=== PATIENT | female | born 1955 | race Caucasian/White ===

== ENCOUNTER 2021-04-12 11:11 | Emergency (ER) | payer MEDICAID, SELFPAY ==
[2021-04-12] VITALS (10 sets, daily range): BP systolic 155–170; BP diastolic 89–121; PULSE 102–117; RESP 16–22; TEMP 36.6; O2SAT 82–99; BMI 18.3
--- NOTE | 2021-04-12 11:22 | EKG12_ITS ---
Test Reason : SOB Blood Pressure : / mmHG Vent. Rate : 105 BPM Atrial Rate : 105 BPM P-R Int : 136 ms QRS Dur : 084 ms QT Int : 344 ms P-R-T Axes : 083 -40 079 degrees QTc Int : 454 ms Sinus tachycardia Right atrial enlargement Left axis deviation Septal MO, age undetermined, cannot be excluded Abnormal ECG Confirmed by EVELIO VELÁSQUEZ, DARI ([id number]), photo editor MARK ONTIVEROS ([id number]) on 04/15/2021 9:25:19 AM Referred By: ZAIN/MEGAN Confirmed By:DARI FRASER MD
--- NOTE | 2021-04-12 11:24 | EDS_ITS ---
HPI History of Present Illness Chief Complaint: Shortness of Breath Informant: patient and EMS Narrative Narrative: 65-year-old female who 3 weeks ago moved to [place] from the [facility] presents with shortness of breath. She states that she has a history of COPD as well as lung cancer. She is chronically on 2 L of nasal cannula. She states at home she trended up to 4. She has had a progressive dyspnea over the past couple days with change in cough and that she can't get her sputum up. No fevers. 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 She states that she was treated for lung cancer while she was staying with her daughter in [place]. She underwent chemotherapy as well as radiation. She did not require lobectomy. [facility] Medical History Asthma COPD (chronic obstructive pulmonary disease) Emphysema lung History of cataract Lung cancer Home Medications albuterol sulfate [Ventolin HFA] 2 puff INHALATION Q4H PRN PRN #1 inhaler 04/12/21 [Rx Last Taken Unknown] prednisone 60 mg PO DAILY #15 tablet 04/12/21 [Rx Last Taken Unknown] Allergy/AdvReac Type Severity Reaction Status Date / Time Penicillins Allergy Rash Verified 04/12/21 11:20 Surgical History History of carpal tunnel repair History of hysterectomy Social History (Updated 04/12/21 @ 11:[address] Emre Blanco DO) Smoking Status: Current some day smoker tobacco type: cigarettes substance use type: does not use ROS ROS ED Constitutional Constitutional ED: Denies chills or weight loss Eyes Eyes: Denies change in vision or diplopia ENT ENT ED: Denies ear pain, rhinorrhea or sore throat Cardiovascular Cardiovascular: Denies chest pain, orthopnea, palpitations or racing heartbeat Respiratory/Chest Respiratory/Chest: Reports cough, dyspnea, dyspnea on exertion and sputum; Denies orthopnea Gastrointestinal Gastrointestinal: Denies abdominal pain, diarrhea, nausea or vomiting Genitourinary Genitourinary ED: Denies dysuria, hematuria or urinary frequency Musculoskeletal Musculoskeletal: Denies arthralgias or myalgias Integumentary Denies abscess or rash Neurologic Neurologic: Denies headache(s) or weakness Psychiatric Psychiatric: Denies anxiety, depression, suicidal ideation or suicidal thoughts Endocrine Endocrinology: Denies polydipsia, polyphagia or polyuria Allergic/Immunologic Allergic/Immunologic ED: Denies mouth swelling, tongue swelling or urticaria EXAM Physical Exam Const Vital Signs: 04/12/21 11:13 04/12/21 11:14 04/12/21 11:29 Temperature 97.9 F Temperature Source Temporal Pulse Rate 102 H 105 H Respiratory Rate 16 22 H Respiratory Effort Short of Breath Labored Accessory Muscle Use Nasal Flaring Pursed Lip Retracting Respiratory Pattern Tachypnea Blood Pressure 160/121 H Blood Pressure Mean 134 Pulse Ox 98 99 97 Oxygen Delivery Method Nasal Cannula Nasal Cannula Nasal Cannula Oxygen Flow Rate (L/min) 3 6 3.5 04/12/21 11:30 04/12/21 11:53 04/12/21 11:55 Temperature Temperature Source Pulse Rate 105 H Respiratory Rate 16 Respiratory Effort Short of Breath Labored Accessory Muscle Use Respiratory Pattern Blood Pressure Blood Pressure Mean Pulse Ox 97 87 95 Oxygen Delivery Method Nasal Cannula Nasal Cannula Nasal Cannula Oxygen Flow Rate (L/min) 3.5 3 5 04/12/21 12:14 04/12/21 14:01 Temperature Temperature Source Pulse Rate 117 H Respiratory Rate 19 H Respiratory Effort Respiratory Pattern Blood Pressure 170/89 H Blood Pressure Mean 116 Pulse Ox 97 90 Oxygen Delivery Method Nasal Cannula Nasal Cannula Oxygen Flow Rate (L/min) 5 5 Positive well nourished and well developed General Appearance ED: well developed HEENT Reports normocephalic, head/scalp atraumatic, TM's clear and moist mucous membranes atraumatic Tympanic Membrane ED: Yes TM's clear Eyes PERRL and EOMs intact bilaterally Neck no lymphadenopathy, supple and no JVD Resp Resp Narrative: Tactile fremitus is present Auscultation: rhonchi and wheezes Cardio regular rhythm and no murmurs Rate: tachycardic GI normal to inspection, nondistended, normoactive bowel sounds and non-tender Auscultation: normoactive bowel sounds Palpation: soft Back/Spine no CVA tenderness, normal ROM and normal to inspection Extremity normal to inspection General Extremety ED: Negative for edema General Extremity: Negative for edema Neuro oriented x3 and CN's II-XII intact bilaterally Sensorium / Orientation: alert Motor Exam: strength 5/5 throughout Psych mental status grossly normal Mood & Affect: Negative for depressed or tearful Skin no rashes or lesions noted and no wounds MDM MDM MDM Narrative Medical decision making narrative: White count 3.3 with a hemoglobin of 10.8. Lactic acid 0.6. CO2 of 40 with a gap of three. My interpretation of the chest x-ray is chronic scarring of the right upper lobe. Radiology reads this as a possible pulmonary infiltrate however this is where the patient had her lung cancer and radiation. The patient's daughter arrives later in her ED course and tells me that her mother had a brain bleed that needed surgery in the past. She states she hit her head a couple weeks ago and she is worried that she has a brain bleed because she has been more tired lately. I explained to the patient that she is not on blood thinners that she had a very mild injury to the head that resulted in no loss of consciousness. I explained to her that each time she hits her head does not necessarily mean that she needs a CT. However the patient was going down for CTA of her chest so I did order a CT of the brain. CT of the brain was negative for intracranial hemorrhage. CTA of the chest demonstrates scarring of the right upper lobe. No obvious pulmonary embolism seen. Patient received DuoNeb albuterol aerosols and Solu-Medrol. Repeat examination shows her still requiring increased oxygen demand of about 5L nasal cannula. Her lung auscultation shows improved aeration continued expiratory wheeze. The patient really does not wish to stay in the hospital. She has a nebulizer at home. Patient would like to try outpatient therapy with prednisone and aerosols. I think that this is reasonable. She does have home oxygen. With the patient ambulating she becomes tachypneic and her oxygen sats to drop to 89% on 5 L. Patient clearly understands that I would prefer her to be treated in the hospital. Patient states she understands but she respectfully declines and would prefer to go home and states that she is having any difficulty she will come back. Lab Data Attestation: I reviewed the patient's lab results. Labs: Laboratory Results - last 24 hr 04/12/21 04/12/21 04/12/21 11:20 11:20 11:33 WBC 3.3 L RBC 4.18 L Hgb 10.8 L Hct 35.4 L MCV 84.7 MCH 25.8 L MCHC 30.5 L RDW Std Deviation 45.2 H RDW Coeff of Jose 14.6 Plt Count 186 MPV 9.4 Immature Gran % (Auto) 0.600 Neut % (Auto) 76.0 H Lymph % (Auto) 14.7 L Grand % (Auto) 8.4 Eos % (Auto) 0.0 Baso % (Auto) 0.3 Absolute Neuts (auto) 2.5 Absolute Lymphs (auto) 0.49 L Nucleated RBC % 0 Diff Path Review May foll Platelet Estimate ADEQUATE Hypochromasia 1+ Sodium 133 L Potassium 4.2 Chloride 90 L Carbon Dioxide 40.0 H Anion Gap 3 L BUN 6 L Creatinine 0.38 L Estim Creat Clear Calc 120.00 Est GFR (MDRD) Af Amer 218 Est GFR (MDRD) Non-Af 180 BUN/Creatinine Ratio 15.7 Glucose 124 H Lactic Acid 0.6 Calcium 8.7 Total Bilirubin 0.50 AST 28 ALT 29 Alkaline Phosphatase 98 Troponin I High Sens 28 Total Protein 7.6 Albumin 3.3 Globulin 4.3 H Albumin/Globulin Ratio 0.8 L COVID-19 (SARBJIT) 04/12/21 04/12/21 11:36 11:36 WBC RBC Hgb Hct MCV MCH MCHC RDW Std Deviation RDW Coeff of Jose Plt Count MPV Immature Gran % (Auto) Neut % (Auto) Lymph % (Auto) Grand % (Auto) Eos % (Auto) Baso % (Auto) Absolute Neuts (auto) Absolute Lymphs (auto) Nucleated RBC % Diff Path Review Platelet Estimate Hypochromasia Sodium Potassium Chloride Carbon Dioxide Anion Gap BUN Creatinine Estim Creat Clear Calc Est GFR (MDRD) Af Amer Est GFR (MDRD) Non-Af BUN/Creatinine Ratio Glucose Lactic Acid Calcium Total Bilirubin AST ALT Alkaline Phosphatase Troponin I High Sens Total Protein Albumin Globulin Albumin/Globulin Ratio COVID-19 (SARBJIT) Cancelled Not Detected Radiography Diagnostic Testing: Clinical Impression(s) from Imaging Studies Chest X-Ray 04/12/21 12:21 IMPRESSION: Right upper lobe pneumonia. Follow-up chest x-ray and/or chest CT is recommended to exclude mass. Electronically Signed: Yassine Hart MD at 12:32 EDT Tel , Service support , ADDENDUM: 04/12/21 1322 IMPRESSION: Right upper lobe pneumonia. Follow-up chest x-ray and/or chest CT is recommended to exclude mass. Electronically Signed: Yassine Hart MD at 12:32 EDT Tel , Service support , Brain CT 04/12/21 12:37 IMPRESSION: Chronic involutional changes of the brain. Electronically Signed: Yassine Hart MD at 13:43 EDT Tel , Service support , Chest CTA 04/12/21 12:37 IMPRESSION: 1. No CT evidence of pulmonary embolism. 2. Suspect right upper lobe bronchogenic carcinoma which may have been treated. Clinical correlation is recommended. Electronically Signed: Yassine Hart MD at 13:54 EDT Tel , Service support , EKG Initial EKG: Attestation: I personally reviewed and interpreted this EKG as follows: Comments: Sinus tachycardia with a ventricular rate of 105 bpm Discharge Plan Triage Chief Complaint: Shortness of Breath ED Provider: Emre Blanco Dx/Rx/DC Orders Clinical Impression: Acute exacerbation of chronic obstructive pulmonary disease Instructions: ED COPD Flare Prescriptions: New prednisone 20 MG tablet 60 mg PO DAILY Qty: 15 RF: 0 albuterol sulfate [Ventolin HFA] 1 INHALER inhaler 2 puff inhalation Q4H PRN PRN (Reason: Wheezing) Qty: 1 RF: 0 Primary Care Provider: Andrea Smith Referrals: Andrea Smith MD [Primary Care Provider] - As Needed Disposition Disposition: Home, Self Care
--- NOTE | 2021-04-12 11:24 | NURSING ---
NO OLD EKGS
[2021-04-12] MEDS: Ipratropium/Albuterol Sulfate 3 ML AMPUL.NEB INHALATION (11:29)
[2021-04-12 11:32] LABS: Absolute Lymphocyte Count 0.49 X10^3/uL (0.83-4.51); Absolute Neutrophil Count 2.5 X10^3/uL (2.0-7.7); Basophil# 0.01 X10^3/uL; Basophil% 0.3 % (0-1); Differential Indicated SCAN CRITERIA MET; Hematocrit 35.4 % (37-47); Hemoglobin 10.8 g/dL (12.0-15.0); Lymphocyte # 0.49 X10^3/ul (0.83-4.51); Lymphocyte % 14.7 % (19-41); Mean Corp Hgb Conc 30.5 g/dL (32-36); Mean Corpuscular Hgb 25.8 pg (27.0-32.0); Mean Corpuscular Volume 84.7 fL (81-99); Mean Platelet Vol. 9.4 fl (6.2-12.0); Monocyte# 0.28 X10^3/uL; Monocyte% 8.4 % (0-10); NRBC Flagged by Analyzer 0 % (0-5); Neutrophil # 2.54 X10^3/uL (2.7-7.7); POSITIVE DIFFERENTIAL YES; Platelet Count 186 K/mm3 (150-450); RBC Distribution Width CV 14.6 % (11.6-14.6); RBC Distribution Width SD 45.2 fl (35.1-43.9); Red Blood Count 4.18 M/mm3 (4.2-5.4); White Blood Count 3.3 K/mm3 (4.4-11.0)
[2021-04-12] MEDS: 0.9% Normal Saline 1,000 ML 150 ML IV (11:36)
[2021-04-12] MEDS: MethylPREDNISolone 125 MG/2 ML Vial IV (11:36)
[2021-04-12 11:48] LABS: ALB/GLOB Ratio 0.8 RATIO (0.9-2.4); AST(SGOT) 28 U/L (15-37); Alanine Aminotransfer ALT/SGPT 29 U/L (13-56); Albumin, Serum 3.3 g/dL (3.2-5.0); Alkaline Phosphatase 98 U/L (45-117); Anion Gap 3 (5-15); BUN 6 mg/dL (7-18); BUN/Creat Ratio 15.7 RATIO (10-20); Calcium,Total 8.7 mg/dL (8.5-10.1); Chloride 90 mmol/L (98-107); Creatinine, Serum 0.38 mg/dL (0.55-1.02); EST Glomerular Filtration Rate 180 mL/min (>60); Est Glom Filt Rate - Afr Amer 218 mL/min (>60); Globulin 4.3 g/dL (2.2-4.2); Glucose 124 mg/dL (74-106); Potassium 4.2 mmol/L (3.5-5.1); Protein, Total 7.6 g/dL (6.4-8.2); Sodium Level 133 mmol/L (136-145); Troponin-I HS 28 pg/mL (3.0-54.0)
[2021-04-12 11:53] LABS: Hypochromasia 1+; Platelet Estimate ADEQUATE (ADEQ)
[2021-04-12 12:06] LABS: Lactic Acid 0.6 mmol/L (0.4-1.9)
[2021-04-12] MEDS: Albuterol 2.5 MG/3 ML VIAL.NEB. INHALATION ×2 (12:11→12:17)
--- NOTE | 2021-04-12 12:21 | RAD_ITS ---
STUDY: X-RAY CHEST REASON FOR EXAM: Female, 65 years old. cough TECHNIQUE: Single AP portable view of the chest. COMPARISON: None. FINDINGS: Alveolar opacity me upper right lung consistent with right upper lobe pneumonia. Follow-up is recommended to document resolution to exclude mass. CT may be useful. There is no demonstrated pleural abnormality. There is moderate cardiac enlargement. Normal mediastinum and amadou. Normal visualized pulmonary arteries. Normal visualized aortic arch and descending thoracic aorta. Normal visualized thoracic spine. Normal visualized ribs, clavicles, and shoulders. There is no demonstrated abnormality of the visualized soft tissue structures of the upper abdomen. RAD/Chest 1 View (Portable) IMPRESSION: Right upper lobe pneumonia. Follow-up chest x-ray and/or chest CT is recommended to exclude mass. Electronically Signed: Yassine Hart MD at 12:32 EDT Tel , Service support ,
--- NOTE | 2021-04-12 12:37 | CT_ITS ---
STUDY: CT BRAIN WITHOUT CONTRAST REASON FOR EXAM: Female, 65 years old. injury RADIATION DOSAGE (If Supplied By Facility): CTDIvol = ( 44.99 ) mGy, DLP = ( 796.11 ) mGycm TECHNIQUE: Transaxial CT imaging of the brain was performed without administration of intravenous contrast material. Individualized dose optimization techniques were used for this CT. COMPARISON: No relevant priors. FINDINGS: Normal soft tissue structures. Normal calvarium. There is mild cerebral atrophy with widening of the extra-axial spaces and ventricular dilatation. There are areas of decreased attenuation within the white matter tracts of the supratentorial brain, consistent with microvascular disease changes. Normal basal ganglia and thalami. Normal brainstem. Normal cerebellum. There is no intracranial hemorrhage. There are no findings of an acute ischemic infarction. Normal visualized paranasal sinuses. CT/Brain/Head without Contrast IMPRESSION: Chronic involutional changes of the brain. Electronically Signed: Yassine Hart MD at 13:43 EDT Tel , Service support ,
--- NOTE | 2021-04-12 12:37 | CT_ITS ---
STUDY: CTA CHEST REASON FOR EXAM: Female, 65 years old. pulmonary embolism RADIATION DOSAGE (If Supplied By Facility): CTDIvol = ( 5.52 ) mGy, DLP = ( 132.84 ) mGycm TECHNIQUE: The examination was performed with the intravenous administration of IV 100mL [id number]-[id number]. Post-processing of the angiographic images was performed, with multiplanar reformation and 3D reconstruction. Individualized dose optimization techniques were used for this CT. COMPARISON: Chest x-ray earlier today FINDINGS: Normal enhancement of the main pulmonary artery and right and left pulmonary arteries. Normal enhancement of the bilateral peripheral pulmonary arteries. There is no demonstrated pulmonary embolism. Normal thoracic aorta and visualized great vessels. There is no demonstrated aortic dissection. Normal heart and pericardium. Normal mediastinum. Fullness of the superior aspect of the hilum of the right lung may represent treated adenopathy. Normal visualized trachea and bronchi. The lungs are well expanded. Mild emphysema. Moderate bilateral apical scarring. 1.5 cm noncalcified nodule in the right upper lobe the lungs with surrounding bronchiectasis and scarring possibly consistent with treated bronchogenic carcinoma. Clinical correlation is recommended. Normal pleura. Normal chest wall structures. Normal osseous structures. Normal visualized upper abdomen. CT/CTA Chest W/WO Contrast IMPRESSION: 1. No CT evidence of pulmonary embolism. 2. Suspect right upper lobe bronchogenic carcinoma which may have been treated. Clinical correlation is recommended. Electronically Signed: Yassine Hart MD at 13:54 EDT Tel , Service support ,
[2021-04-14 12:47] LABS: Pathologist Review Reviewed
== END 2021-04-12 15:03 | disposition home or self-care (01) ==
PROVIDERS: Emergency Provider Emergency Medicine; PCP Family Medicine
DX: J44.1 Chronic obstructive pulmonary disease with (acute) exacerbation (principal); S09.90XA Unspecified injury of head, initial encounter; X58.XXXA Exposure to other specified factors, initial encounter; Y93.9 Activity, unspecified; Y92.9 Unspecified place or not applicable; Z85.118 Personal history of other malignant neoplasm of bronchus and lung; Z92.21 Personal history of antineoplastic chemotherapy; Z92.3 Personal history of irradiation; Z99.81 Dependence on supplemental oxygen; F17.210 Nicotine dependence, cigarettes, uncomplicated
CPT/HCPCS: 70450; 71045; 71275; 80053; 83605; 84484; 85025; 87040; 87635; 93005; 94640; 96361; 96374; 99251; 99285; J7030; Q9967; U0005; G0463; U0003